=== PATIENT | female | born 1980 | race African-American/Black ===

== ENCOUNTER 2019-11-26 11:42 | Emergency (ER) | payer OTHER ==
[~2019-11-26] VITALS: Ht 157.5 cm; Wt 59.1 kg
[2019-11-26 12:05] VITALS: BP 161/111
== END 2019-11-26 13:22 | disposition home or self-care (01) ==
LOC: EEVIPCON 11:45 → EMS 11:45
DX: Z20.828 Contact with and (suspected) exposure to other viral communicable diseases (principal)
CPT/HCPCS: 87426; 99283; U0003

== ENCOUNTER → 2019-11-30 | Outpatient (CLI) | payer OTHER | END | disposition home or self-care (01) | LOC: LABPV 11:55 | DX: Z20.828 Contact with and (suspected) exposure to other viral communicable diseases (principal) | CPT/HCPCS: 87426; U0003 ==